=== PATIENT | male | born 1985 | race Hispanic/Latino ===

== ENCOUNTER 2020-11-26 10:43 | Emergency (ER) | payer SELFPAY ==
[2020-11-26] MEDS ORDERED: HYDROcodone/Acetaminophen 10/325 mg Tablet ONE (11:04)
[2020-11-26] MEDS ORDERED: Ibuprofen 800 MG TAB ONE (11:05)
[2020-11-26] MEDS ORDERED: Clindamycin 150 MG CAP ONE (12:14)
--- NOTE | 2020-11-26 13:31 | RAD ---
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 The remaining proximal phalanx showed n o acute bony findings. The first MCP joint was normal in appearance as well. IMPRESSION: No acute bony findings. POS: HOME
== END 2020-11-26 12:20 | disposition home or self-care (01) ==
LOC: BURERS 10:43
DX: M79.645 Pain in left finger(s) (principal); X58.XXXA Exposure to other specified factors, initial encounter